=== PATIENT | female | born 1990 | race Hispanic/Latino ===

== ENCOUNTER 2022-04-29 17:41 | Emergency (ER) | payer SELFPAY ==
--- OUTSIDE RECORDS SUMMARY | 2022-04-29 17:44 | XMS REPORT | Continuity of Care Document ---
:1990 Author Organization [facility] t Address [address] [place] [address] Care Team Providers Name Role Phone Monica Butler Attending Clinician Renate Lee Admitting Clinician Unavailable Payers Payer Name Policy Type Policy Number Effective Date Expiration Date S ource Problems Condition Condition Condition Status Onset Resolution Last Treating Co mments Source Name Details Category Date Date Treatment Clinician Date No known No known Disease Unive rs active active ity of problems problems [facility] Allergies, Adverse Reactions, Alerts Allergy Allergy Status Severity Reaction(s) Onset Inactive Treating Comm ents Source Name Type Date Date Clinician No Known DA Active U [facility] No Known DA Active U 2017-0 [facility] Allergie 8-05 [facility] 00:[facility] NO KNOWN Drug Active Univers ALLERGIE Class [facility] Social History Social Habit Start Date Stop Date Quantity Comments Source Sex Assigned At Uni versity [facility] Exposure to SARS-CoV-2 Not sure Un iversity [facility] (event) [facility] Smoking Status Start Date Stop Date Source Never smoker [facility] Medications Ordered Filled Start Stop Current Ordering Indication Dosage Frequency Signature Comments Components Source Medication Medication Date Date Medication? Clinician (SIG) Name Name No known No [facility] medications [facility] Vital Signs Vital Name Observation Time Observation Value Comments Source Systolic blood 2019-11-30 08:30:14 116 mm[Hg] [facility]iver [facility] Diastolic blood 2019-11-30 08:30:14 80 mm[Hg] Unive rsity of pressure [facility] Heart rate 2019-11-30 08:30:14 80 /min Universi ty of [facility] Respiratory rate 2019-11-30 08:30:14 17 /min Univ ersity of [facility] Oxygen saturation in 2019-11-30 08:30:14 99 /min University of Arterial blood by [facility] Pulse oximetry Branch Body temperature 2019-11-30 06:48:00 36.39 Juju Univ ersity of [facility] Body height 2019-11-30 06:48:00 157.5 cm Universi ty of [facility] Body weight 2019-11-30 06:48:00 85.73 kg Universi ty of [facility] BMI 2019-11-30 06:48:00 34.57 kg/m2 Universi ty of [facility] Systolic blood 2019-11-30 08:30:14 116 mm[Hg] Univer sity [facility] Diastolic blood 2019-11-30 08:30:14 80 mm[Hg] Unive rsity of pressure [facility] Heart rate 2019-11-30 08:30:14 80 /min [facility] Respiratory rate 2019-11-30 08:30:14 17 /min Univ ersity of [facility] Oxygen saturation in 2019-11-30 08:30:14 99 /min University of Arterial blood by [facility] Pulse oximetry Branch Body temperature 2019-11-30 06:48:00 36.39 Juju Univ ersity of [facility] Body height 2019-11-30 06:48:00 157.5 cm [facility] Body weight 2019-11-30 06:48:00 85.73 kg Universi [facility] of [facility] BMI 2019-11-30 06:48:00 34.57 kg/m2 [facility] ty [facility] Procedures Procedure Date / Time Performed Performing Clinician Melinda fong [id number] 2020-09-03 00:00:00 M[facility] URINALYS[facility] 2019-11-30 07:09:00 Monica Schulz [facility] POCT TEST 2019-11-30 07:09:00 Monica [facility] Encounters Start End Encounter Admission Attending Care Care Encounter Source Date/Time Date/Time Type Type Clinicians Facility Department ID 2021-04-08 Emergency [facility] [id number] Univers 02:00:19 [facility] 2020-09-03 Inpatient [facility] [id number] [facility] 17:18:00 [id number] [facility] 2020-08-27 Inpatient [facility] FLAK[facility] [id number] [facility] 18:34:00 [id number] [facility] 2019-11-30 2019-11-[address] [facility] [id number] 01:51:03 03:31:00 Monica Fair [facility] [id number] [facility] 4.2.7.2.68[facility] [phone] [address] ([facility]) 2019-11-30 2019-11-[address] [facility] [id number] [facility] 01:51:03 03:31:00 Monica Fair [facility] [id number] i ty of League 4.2.7.2.686 [facility] [phone] [address] ([facility]) Results Test Description Test Time Test Comments Results Result Comments Source SURGICAL 2020-09-07 12:18:00 Test Item Value Reference Range Interpretation Commajit nts SURGICAL RUN DATE: (test 09/07/20 [facility] LAB LIVE PAGE 1 RUN TIME: 1218 Specimen Inquiry RUN USER: INTERFACE code = PATIENT: NOEL GAYLE ACCT #: [id number] LOC: [facility] U #: [id number] AGE/SX: 30/F ROOM: [facility] RE09/03/20REG DR: Renate Weber i : [birth year] BED: A DIS: 09/05/20 STATUS: DIS IN TLOC: SPEC #: [id number] RECD: 09/06/20908 STATUS: [facility] REQ #: [id number] MELANIA: 09/03/20- [facility] DR: Renate Lee MD ENTERE SP TYPE: SURGICAL OTHR DR: ORDERED: SURG/PATH GROSS GROSS DESCRIPTION: The speci men is received in formalin in a container labeled "NOEL TODD - BILATERAL TUBAL SEGMENTS, [facility] SIDE [facility]". The specimen consists of two fimbriated segments of fallopian tube. The right is marked with a stitch measuring 5 x 0.5 cm. It is inked in black. The left measures 3.5 x 0.6 cm. Sections from both are submitted in one cassette. CODES: [id number] - BOTH FALLOPIAN PROCEDURES: SURG/P ATH GROSS (09/06/20-909) TISSUES: A. BOTH FALLOPIAN TUBES - BILATERAL TUBAL SEGMENTS;RIGHT SIDE TA GGED Surgery information Surgery date 09/03/20 Surgeon(s): RENATE LEE Pre-Op Dx: IUP @ 36.3WKS; DESIRES STERILIZATION Post-Op Dx: SAME Signed SIGNATURE ON FILE Ant Holt 09/07/20 1218 END OF REPORT AG HEPATITIS B [id number] 09:42:00 Test Item Value Reference Range Interpretation Comments AG HEPATITIS B SURFACE NONREAC NONREAC The r esults were (test code = HBSAG) obtained using the Fluid Stoner XP HBsA g assay. AB [id number] 09:42:00 Test Item Value Reference Range Interpretation Comments AB TREPONEMA (test NONREACTIVE NONREACTIVE Treponema l screening code = TREPAB) for Syphilis------- ------ ----- HIV 1 2 COMBO AG/AB [id number] 09:42:00 Test Item Value Reference Range Interpretation Comments HIV 1 2 COMBO AG/AB NON REACT NON REACT A Non-re active result SCREEN (test code = does not exclude the [id number]) possibility shirley xposure to or infection wi th HIV. HIV antibodies and/or [id number] may be undetectable in some stages of the infectionand in some clinical condit ions.The results were ob tained using the inthinc XP CHIV assay.For use i n the detection of HI V p24 antigen and ant ibodiesto HIV Type 1 and/ or HIV Type 2. CBC W/AUTO [id number] 06:23:00 Test Item Value Reference Range Interpretation Comments WHITE BLOOD CELL (test code = 15.3 X10(3) 4.5-11.0 H WBC) RED BLOOD CELL (test code = 4.21 X10(6) 4.2-5.4 N RBC) HEMOGLOBIN (test code = HGB) 11.5 g/dL 12.5-16.0 L HEMATOCRIT (test code = HCT) 36.0 % 37.0-47.0 L MEAN CELL VOLUME (test code = 85.5 fl 78-100 N MCV) MEAN CELL HGB (test code = MCH) 27.3 pg 26.0-34.0 N MEAN CELL HGB CONCETRATION 31.9 g/dl 30.0-37.0 N (test code = MCHC) RED CELL DISTRIBUTION WIDTH 13.9 % 11.5-14.5 N (test code = RDW) PLATELET COUNT (test code = 290 X10(3) 150-350 N PLT) MEAN PLATELET VOLUME (test code 10.0 fl 8.7-11.4 N = MPV) NEUTROPHIL % (test code = NT%) 88.8 % 36.0-66.0 H IMMATURE GRANULOCYTE % (test 0.6 % 0.0-2.0 N code = IG%) LYMPHOCYTE % (test code = LY%) 7.6 % 16.0-50.0 L MONOCYTE % (test code = MO%) 2.9 % 0.0-13.0 N EOSINOPHIL % (test code = EO%) 0.0 % 0.0-4.5 N BASOPHIL % (test code = BA%) 0.1 % 0.0-1.5 N NUCLEATED RBC % (test code = 0.0 % 0-0.2 N NRBC%) NEUTROPHIL # (test code = NT#) 13.62 X10(3) 1.70-7.70 H IMMATURE GRANULOCYTE # (test 0.09 X10(3)uL 0.00-0.03 H code = IG#) LYMPHOCYTE # (test code = LY#) 1.17 X10(3) 0.70-4.00 N MONOCYTE # (test code = MO#) 0.44 X10(3) 0.00-0.89 N EOSINOPHIL # (test code = EO#) 0.00 X10(3) 0.00-0.60 N BASOPHIL # (test code = BA#) 0.02 X10(3) 0.00-0.20 N NUCLEATED RBC # (test code = 0.00 K/mm3 0.0-0.1 N NRBC#) UA RFLX MICROSCOPIC [id number] 21:36:00 Test Item Value Reference Range Interpretation Comments UA COLOR (test code = COLU) COLORLESS YELLOW UA APPEARANCE (test code = CLEAR CLEAR APPU) UA GLUCOSE DIPSTICK (test code NORMAL mg/dl NORMAL = DGLUU) UA BILIRUBIN DIPSTICK (test NEGATIVE mg/dl NEGATIVE code = BILU) UA KETONE DIPSTICK (test code TRACE mg/dl NEGATIVE = KETU) UA SPECIFIC GRAVITY (test code 1.007 1.001-1.035 N = SGU) UA BLOOD DIPSTICK (test code = NEGATIVE /UL NEGATIVE JUAN) UA PH DIPSTICK (test code = 7.0 4.6-8.0 MINERVA) UA PROTEIN DIPSTICK (test code NEGATIVE mg/dl NEGATIVE = PROU) UA UROBILINIOGEN DIPSTICK NORMAL mg/dl NORMAL (test code = URO) UA NITRITE DIPSTICK (test code NEGATIVE NEGATIVE = TALHA) UA LEUKOCYTE ESTERASE DIPSTICK NEGATIVE /UL NEGATIVE (test code = LEUU) UA COMMENT (test code = COMU) CATHERIZED UA WBC (test code = WBCUR) 0-2 #/hpf 0-5 UA RBC (test code = RBCU) 0-2 #/hpf 0-5 UA EPITHELIAL CELLS (test code FEW /hpf NEG,FEW = EPIU) Indication for culture: Temperature > 100.4 FURINE SOURCE: CATHERIZED URINE- US PREG AFTER [id number] 20:47:00 [facility] 1990 Sex: F FAX: Renate Capone [phone] [place]: [facility] St: ADM Name: NOEL TODD [facility] : 1990 Age/S: 30/F [address] [facility] Unit #: [id number] Loc: [facility] [place], [place] [address] Phys: Renate Lee MD Acct: [id number] Dis Date: Status: ADM IN PHONE #: [phone] Exam Date: 0 09/03/20202022 FAX #: [phone] Reason: WEL BEING, PAIN EXAMS: CPT CODE: [id number] US PREGAFTER 1ST TRI 46819 DICTATION LOCATION: 8 HISTORY: Female, 30 years of age with labor at 36 weeks 3 days by dates. Assess weight and well-being. EXAM: OB ULTRASOUND, LIMITED COMPARISON: None for this . TECHNIQUE: Real-time sonography was performed transabdominally with the 4 MHztransducer. FINDINGS: Number: Figueroa Presentation: cephalic Placenta: anterior, Grade2. There is no evidence of placental abruption or placenta previa. Cervix: Closed, measuring 3.05 cmlength. BRANDEE: 10.99, within normal limits. Single deepest pocket measures 3.58 cm. Anatomic Survey: No formal anatomic survey was done. heart rate: 174 BPM Average sonographic age of the fetus is 35 weeks 3 days with EDC of 10/05/2020 based on the following: Biparietal diameter: 35 weeks 0 days, 20.7 percentile Head circumference: 34 weeks 6 days, 3.2 percentile Abdominal circumference: 35 weeks 5 days, 39.6 percentile Femur length: 35 weeks 6 days, 32.2%. Estimated weight: 2710 grams +/- 406.57 grams, or 6 lbs. 0 oz. weight percentile: 29.8 % based on established due date of 09/28/2020 weeks gestational age by dates 36 weeks 3 days. IMPRESSION: 1. Single living intrauterine fetus at 35 weeks 3 days sonographic age. Ultrasound age consistent with dates. 2. No evidence for placenta previa or abruption. at 2046 Reported and signed by: ROLLY COUCH M.D. PAGE 1 Signed Report (CONTINUED) FAX: Renate Capone [phone] [place]: [facility] St: ADM -- Name: PEYTONNOEL WORKMAN [facility] : 1990 Age/S: 30/F [address] [place] [address] Unit #: [id number] Loc: [place] [address] Phys: Renate Lee MD Acct: [id number] Dis Date: Status: ADM IN PHONE #: [phone] Exam Date: 09/03/20202022 FAX #: [phone] Reason: WEL BEING, PAIN EXAMS: CPT CODE: [id number] US PREG AFTER TRI 37773 (Continued) CC: Renate Sierra Technologist: Zachary Jimenez RDMS Trnscrd Date/Time/By: 09/03/2020 (2046) : By: Victor Manuel Orig Print D/T: S: 09/03/2020 (2049) PAGE 2 Signed ReportCOVID 19 Asymptomatic IH [id number] 19:48:00 Test Item Value Reference Interpretation Comments Range COVID 19 Presumed NEGATIVE CATIA COVID-19 Asymptomatic IH AG Negative --------- ------Results (test code = are for the COVNONPUIAG) identification of WLMX-FtB-4yhpok ocapsid protein antigen . Antigen is generallydet ectable in upper respir atory specimens durin g the acutephase of i nfection. Positive result s indicate the pr esenceof viral antigens, but clinical correl ation with patienthis tory and other diagnosti c information is necessary todetermine inf ection status. Negativ e results should be treat ed as presumptive and confirmed with a molecula r assay, if necessary fo r patientmanageme nt. Negative result s do not rule out COVID- 19 andshould not b e used as the sole basis for treatment orpat ient management deci sions, including infec tion controldecision s. Negative result s should be considered i n thecontext of a patient's recen t exposures, hist ory and thepresence of clinical signs and sympt oms consistent with COVID-19. The Catia SARS Antigen DAPHNE is only for use under the Fooda nd Drug Administration' s Emergency Use Authorization. CBC W/AUTO [id number] 18:35:00 Test Item Value Reference Range Interpretation Comments WHITE BLOOD CELL (test code = 10.7 X10(3) 4.5-11.0 N WBC) RED BLOOD CELL (test code = 4.18 X10(6) 4.2-5.4 L RBC) HEMOGLOBIN (test code = HGB) 11.6 g/dL 12.5-16.0 L HEMATOCRIT (test code = HCT) 35.9 % 37.0-47.0 L MEAN CELL VOLUME (test code = 85.9 fl 78-100 N MCV) MEAN CELL HGB (test code = MCH) 27.8 pg 26.0-34.0 N MEAN CELL HGB CONCETRATION 32.3 g/dl 30.0-37.0 N (test code = MCHC) RED CELL DISTRIBUTION WIDTH 14.3 % 11.5-14.5 N (test code = RDW) PLATELET COUNT (test code = 286 X10(3) 150-350 N PLT) MEAN PLATELET VOLUME (test code 10.3 fl 8.7-11.4 N = MPV) NEUTROPHIL % (test code = NT%) 83.2 % 36.0-66.0 H IMMATURE GRANULOCYTE % (test 0.7 % 0.0-2.0 N code = IG%) LYMPHOCYTE % (test code = LY%) 10.1 % 16.0-50.0 L MONOCYTE % (test code = MO%) 5.5 % 0.0-13.0 N EOSINOPHIL % (test code = EO%) 0.3 % 0.0-4.5 N BASOPHIL % (test code = BA%) 0.2 % 0.0-1.5 N NUCLEATED RBC % (test code = 0.0 % 0-0.2 N NRBC%) NEUTROPHIL # (test code = NT#) 8.90 X10(3) 1.70-7.70 H IMMATURE GRANULOCYTE # (test 0.08 X10(3)uL 0.00-0.03 H code = IG#) LYMPHOCYTE # (test code = LY#) 1.08 X10(3) 0.70-4.00 N MONOCYTE # (test code = MO#) 0.59 X10(3) 0.00-0.89 N EOSINOPHIL # (test code = EO#) 0.03 X10(3) 0.00-0.60 N BASOPHIL # (test code = BA#) 0.02 X10(3) 0.00-0.20 N NUCLEATED RBC # (test code = 0.00 K/mm3 0.0-0.1 N NRBC#) COMPREHENSIVE METABOLIC [id number] 20:35:00 Test Item Value Reference Range Interpretation Comments SODIUM (test code = 141 mmol/L 136-145 N NA) POTASSIUM (test code = 3.4 mmol/L 3.5-5.1 L K) CHLORIDE (test code = 111 mmol/L 98-107 H CL) CARBON DIOXIDE (test 21 mmol/L 21-32 N code = CO2) GLUCOSE (test code = 80 mg/dL 70-100 N GLU) BLOOD UREA NITROGEN 5 mg/dL 7-18 L (test code = BUN) GLOMERULAR FILTRATION > 60.00 See_Comment Report ing units: RATE (test code = GFR) mL/mi n/1.73m\\S\\2 (Modified MDRD formula)REFEREN CE RANGE: > or = 6 0 ml/min/1.73M2IF PATIENT IS -ZAK N, MULTIPLY REPORT ED RESULT BY1.21. [Automated mess age] The system [employer] generated this result transmitted ref erence range: >=60. Th e reference range was not used to int erpret this result as normal/abnormal . CREATININE (test code 0.28 mg/dL 0.51-0.95 L = CREAT) TOTAL PROTEIN (test 6.1 g/dl 6.4-8.2 L code = PROT) ALBUMIN (test code = 2.5 g/dl 3.4-5.0 L ALB) CALCIUM (test code = 7.9 mg/dL 8.5-10.1 L CA) BILIRUBIN TOTAL (test 0.7 mg/dl 0.2-1.0 N code = BILT) SGOT/AST (test code = 9 U/L 15-37 L AST) SGPT/ALT (test code = 14 U/L 12-78 N ALT) ALKALINE PHOSPHATASE 103 U/L 50-136 N TOTAL (test code = ALKP) COMPREHENSIVE METABOLIC [id number] 20:33:00 Test Item Value Reference Range Interpretation Comments SODIUM (test code = 141 mmol/L 136-145 N NA) POTASSIUM (test code = 3.4 mmol/L 3.5-5.1 L K) CHLORIDE (test code = 111 mmol/L 98-107 H CL) CARBON DIOXIDE (test 21 mmol/L 21-32 N code = CO2) GLUCOSE (test code = 80 mg/dL 70-100 N GLU) BLOOD UREA NITROGEN 5 mg/dL 7-18 L (test code = BUN) GLOMERULAR FILTRATION > 60.00 See_Comment Report ing units: RATE (test code = GFR) mL/mi n/1.73m\\S\\2 (Modified MDRD formula)REFEREN CE RANGE: > or = 6 0 ml/min/1.73M2IF PATIENT IS -ZAK N, MULTIPLY REPORT ED RESULT BY07.01. [Automated mess age] The system [employer] generated this result transmitted ref erence range: >=60. Th e reference range was not used to int erpret this result as normal/abnormal . CREATININE (test code 0.28 mg/dL 0.51-0.95 L = CREAT) TOTAL PROTEIN (test g/dl 6.4-8.2 code = PROT) ALBUMIN (test code = 2.5 g/dl 3.4-5.0 L ALB) CALCIUM (test code = 7.9 mg/dL 8.5-10.1 L CA) BILIRUBIN TOTAL (test mg/dl 0.2-1.0 code = BILT) SGOT/AST (test code = 9 U/L 15-37 L AST) SGPT/ALT (test code = 14 U/L 12-78 N ALT) ALKALINE PHOSPHATASE U/L 50-136 TOTAL (test code = ALKP) COMPREHENSIVE METABOLIC [id number] 20:30:00 Test Item Value Reference Range Interpretation Comments SODIUM (test code = 141 mmol/L 136-145 N NA) POTASSIUM (test code = 3.4 mmol/L 3.5-5.1 L K) CHLORIDE (test code = 111 mmol/L 98-107 H CL) CARBON DIOXIDE (test 21 mmol/L 21-32 N code = CO2) GLUCOSE (test code = 80 mg/dL 70-100 N GLU) BLOOD UREA NITROGEN 5 mg/dL 7-18 L (test code = BUN) GLOMERULAR FILTRATION See_Comment [Auto mated message] RATE (test code = GFR) The s ystem which generated this result transmitted ref erence range: >=60. Th e reference range was not used to int erpret this result as normal/abnormal . CREATININE (test code mg/dL 0.51-0.95 = CREAT) TOTAL PROTEIN (test g/dl 6.4-8.2 code = PROT) ALBUMIN (test code = 2.5 g/dl 3.4-5.0 L ALB) CALCIUM (test code = 7.9 mg/dL 8.5-10.1 L CA) BILIRUBIN TOTAL (test mg/dl 0.2-1.0 code = BILT) SGOT/AST (test code = U/L 15-37 AST) SGPT/ALT (test code = U/L 12-78 ALT) ALKALINE PHOSPHATASE U/L 50-136 TOTAL (test code = ALKP) COMPREHENSIVE METABOLIC [id number] 20:29:00 Test Item Value Reference Range Interpretation Comments SODIUM (test code = 141 mmol/L 136-145 N NA) POTASSIUM (test code = 3.4 mmol/L 3.5-5.1 L K) CHLORIDE (test code = 111 mmol/L 98-107 H CL) CARBON DIOXIDE (test mmol/L 21-32 code = CO2) GLUCOSE (test code = mg/dL 70-100 GLU) BLOOD UREA NITROGEN mg/dL 7-18 (test code = BUN) GLOMERULAR FILTRATION See_Comment [Auto mated message] RATE (test code = GFR) The s ystem which generated this result transmitted ref erence range: >=60. Th e reference range was not used to int erpret this result as normal/abnormal . CREATININE (test code mg/dL 0.51-0.95 = CREAT) TOTAL PROTEIN (test g/dl 6.4-8.2 code = PROT) ALBUMIN (test code = g/dl 3.4-5.0 ALB) CALCIUM (test code = 7.9 mg/dL 8.5-10.1 L CA) BILIRUBIN TOTAL (test mg/dl 0.2-1.0 code = BILT) SGOT/AST (test code = U/L 15-37 AST) SGPT/ALT (test code = U/L 12-78 ALT) ALKALINE PHOSPHATASE U/L 50-136 TOTAL (test code = ALKP) COMPREHENSIVE METABOLIC [id number] 20:27:00 Test Item Value Reference Range Interpretation Comments SODIUM (test code = 141 mmol/L 136-145 N NA) POTASSIUM (test code = 3.4 mmol/L 3.5-5.1 L K) CHLORIDE (test code = 111 mmol/L 98-107 H CL) CARBON DIOXIDE (test mmol/L 21-32 code = CO2) GLUCOSE (test code = mg/dL 70-100 GLU) BLOOD UREA NITROGEN mg/dL 7-18 (test code = BUN) GLOMERULAR FILTRATION See_Comment [Auto mated message] RATE (test code = GFR) The s ystem which generated this result transmitted ref erence range: >=60. Th e reference range was not used to int erpret this result as normal/abnormal . CREATININE (test code mg/dL 0.51-0.95 = CREAT) TOTAL PROTEIN (test g/dl 6.4-8.2 code = PROT) ALBUMIN (test code = g/dl 3.4-5.0 ALB) CALCIUM (test code = mg/dL 8.5-10.1 CA) BILIRUBIN TOTAL (test mg/dl 0.2-1.0 code = BILT) SGOT/AST (test code = U/L 15-37 AST) SGPT/ALT (test code = U/L 12-78 ALT) ALKALINE PHOSPHATASE U/L 50-136 TOTAL (test code = ALKP) URINALYSIS W REFLEX [id number] 20:24:00 Test Item Value Reference Range Interpretation Comments UA COLOR (test code = COLU) COLORLESS YELLOW UA APPEARANCE (test code = CLEAR CLEAR APPU) UA GLUCOSE DIPSTICK (test code NORMAL mg/dl NORMAL = DGLUU) UA BILIRUBIN DIPSTICK (test NEGATIVE mg/dl NEGATIVE code = BILU) UA KETONE DIPSTICK (test code NEGATIVE mg/dl NEGATIVE = KETU) UA SPECIFIC GRAVITY (test code 1.005 1.001-1.035 N = SGU) UA BLOOD DIPSTICK (test code = NEGATIVE /UL NEGATIVE JUAN) UA PH DIPSTICK (test code = 6.5 4.6-8.0 MINERVA) UA PROTEIN DIPSTICK (test code NEGATIVE mg/dl NEGATIVE = PROU) UA UROBILINIOGEN DIPSTICK NORMAL mg/dl NORMAL (test code = URO) UA NITRITE DIPSTICK (test code NEGATIVE NEGATIVE = TALHA) UA LEUKOCYTE ESTERASE DIPSTICK NEGATIVE /UL NEGATIVE (test code = LEUU) UA COMMENT (test code = COMU) RANDOM UA WBC (test code = WBCU) 0-2 #/hpf 0-5 UA RBC (test code = RBCU) 0-2 #/hpf 0-5 UA EPITHELIAL CELLS (test code FEW /hpf NEG,FEW = EPIU) UA BACTERIA (test code = BACU) 1+ /hpf NEGATIVE A URINE SOURCE: RANDOM URINECBC W/AUTO [id number] 20:18:00 Test Item Value Reference Range Interpretation Comments WHITE BLOOD CELL (test code = 10.9 X10(3) 4.5-11.0 N WBC) RED BLOOD CELL (test code = 3.72 X10(6) 4.2-5.4 L RBC) HEMOGLOBIN (test code = HGB) 10.4 g/dL 12.5-16.0 L HEMATOCRIT (test code = HCT) 32.0 % 37.0-47.0 L MEAN CELL VOLUME (test code = 86.0 fl 78-100 N MCV) MEAN CELL HGB (test code = MCH) 28.0 pg 26.0-34.0 N MEAN CELL HGB CONCETRATION 32.5 g/dl 30.0-37.0 N (test code = MCHC) RED CELL DISTRIBUTION WIDTH 13.8 % 11.5-14.5 N (test code = RDW) PLATELET COUNT (test code = 260 X10(3) 150-350 N PLT) MEAN PLATELET VOLUME (test code 10.0 fl 8.7-11.4 N = MPV) NEUTROPHIL % (test code = NT%) 66.0 % 36.0-66.0 N IMMATURE GRANULOCYTE % (test 0.9 % 0.0-2.0 N code = IG%) LYMPHOCYTE % (test code = LY%) 24.6 % 16.0-50.0 N MONOCYTE % (test code = MO%) 6.8 % 0.0-13.0 N EOSINOPHIL % (test code = EO%) 1.4 % 0.0-4.5 N BASOPHIL % (test code = BA%) 0.3 % 0.0-1.5 N NUCLEATED RBC % (test code = 0.0 % 0-0.2 N NRBC%) NEUTROPHIL # (test code = NT#) 7.18 X10(3) 1.70-7.70 N IMMATURE GRANULOCYTE # (test 0.10 X10(3)uL 0.00-0.03 H code = IG#) LYMPHOCYTE # (test code = LY#) 2.67 X10(3) 0.70-4.00 N MONOCYTE # (test code = MO#) 0.74 X10(3) 0.00-0.89 N EOSINOPHIL # (test code = EO#) 0.15 X10(3) 0.00-0.60 N BASOPHIL # (test code = BA#) 0.03 X10(3) 0.00-0.20 N NUCLEATED RBC # (test code = 0.00 K/mm3 0.0-0.1 N NRBC#) [id number] 07:35:00 Test Item Value Reference Range Interpretation Comments APPEARANCE (test code = Clear Clear [id number]) COLOR (test code = Straw Yellow A [id number]) PH (test code = 4.8-8.0 4552640662) SP GRAVITY (test code = 1.003-1.030 [id number]) GLU U QUAL (test code = Normal Normal [id number]) BLOOD (test code = Negative Negative 4161289266) KETONES (test code = Negative Negative 4671787933) PROTEIN (test code = Negative Negative 2887-8) UROBILIN (test code = Normal Normal 5618316558) BILIRUBIN (test code = Negative Negative 7464751450) NITRITE (test code = Negative Negative 7926609684) LEUK JACQUELINE (test code = Negative Negative 6481523897) RBC/HPF (test code = See_Comment [Autom ated message] [id number]) The system [employer] generated this result transmitted ref erence range: 0 - 3 HP F. The reference range was not used to int erpret this result as normal/abnormal . WBC/HPF (test code = <1 See_Comment [Autom ated message] [id number]) The system [employer] generated this result transmitted ref erence range: 0 - 5 HP F. The reference range was not used to int erpret this result as normal/abnormal . BACTERIA (test code = Few Negative A [id number]) SQ EPITH (test code = <1 See_Comment [Auto mated message] [id number]) The system [employer] generated this result transmitted ref erence range: <=2 HPF. The reference range was not used to int erpret this result as normal/abnormal . Lab Interpretation (test Abnormal code = 47518-0) [id number] 07:09:00 Test Item Value Reference Range Interpretation Comments POCT PREG (test code = 1605) negative On board controls acceptable with present C Line (test code = 3574) POCT PREG LOT # (test code = 3575) [id number] POCT PREG TEST DATE (test 01/08/2021 code = 3576) Lab Interpretation (test code = Normal 44848-4) [facility]
[2022-04-29 18:44] LABS: Absolute Lymphocytes (CBC) 2.6 K/uL (0.7-4.9); Hematocrit 41.3 % (36.0-45.0); Lymphocytes % 29.1 % (15.3-44.8); MCV 86.7 fL (80-100); MPV 8.1 fL (7.6-11.3); RBC Red Blood Cell Count 4.77 M/uL (3.86-4.86)
[2022-04-29 18:56] LABS: Albumin 3.6 g/dL (3.4-5.0); Magnesium 1.7 mg/dL (1.8-2.4); Potassium 3.6 mmol/L (3.5-5.1)
[2022-04-29 19:06] LABS: Bilirubin Direct 0.2 mg/dL (0-0.2); Bilirubin Total 0.9 mg/dL (0.2-1.0); Protein, Total 7.2 g/dL (6.4-8.2)
--- NOTE | 2022-04-29 19:11 | RAD REPORT ---
EXAM DESCRIPTION: Mikey Single View04/29/2022 6:56 pm CLINICAL HISTORY: Chest pain COMPARISON: none FINDINGS: The lungs appear clear of acute infiltrate. The heart is normal size IMPRESSION: No acute abnormalities displayed
[2022-04-29 19:13] LABS: Troponin High Sensitivity 3.5 pg/mL (<58.9)
[2022-04-29 19:21] LABS: Urine Blood Negative (Negative); Urine Glucose Negative (Negative); Urine Protein Negative (Negative)
[2022-04-29] MEDS ORDERED: KETOROLAC 30 MG/ML INJ ONE (19:30)
[2022-04-29] MEDS ORDERED: MAGNESIUM SULFATE 1 gm IVPB 1 GM/100 ML BAG IV ONE (19:31)
--- NOTE | 2022-04-29 20:28 | EDPHYS ---
Physician Documentation [facility] Name: Kennedi Demarco Age: 31 yrs Sex: Female : 1990 Arrival Date: 04/29/2022 Time: 17:43 Bed 15 Private MD: ED Physician Scott Lal HPI: 04/29 18:04 This 31 yrs old Female presents to ER via Ambulatory with complaints of Chest cp Pain. 18:05 The patient or guardian reports chest pain that is located primarily in the anterior cp chest wall, right. The pain radiates to right back. 18:05 Associated signs and symptoms: Pertinent positives: shortness of breath, Pertinent cp negatives: abdominal pain, cough, dizziness, lower extremity pain, lower extremity swelling, recent travel, syncope, vomiting. The chest pain is described as sharp. Duration: The patient or guardian reports multiple episodes, that are intermittent. Historical: - Allergies: 17:53 No Known Allergies; hb - Immunization history:: Adult Immunizations unknown. - Social history:: Smoking status: Patient denies any tobacco usage or history of. ROS: 18:10 Cardiovascular: Positive for chest pain, of the right side upper chest, Negative for cp edema, palpitations. 18:10 Back: Positive for radiated pain, of the right scapular area and right subscapular area.cp 18:10 Abdomen/GI: Negative for abdominal pain, nausea, vomiting, and diarrhea, constipation. cp 18:10 Eyes: Negative for injury, pain, redness, and discharge. cp 18:10 Constitutional: Negative for body aches, chills, fever, poor PO intake. 18:10 ENT: Negative for drainage from ear(s), ear pain, sore throat, difficulty swallowing, difficulty handling secretions. 18:10 Respiratory: Positive for shortness of breath, Negative for cough, wheezing. 18:10 Neuro: Negative for altered mental status, headache, syncope, weakness. 18:10 All other systems are negative. Exam: 18:15 Constitutional: The patient appears in no acute distress, alert, awake, cp non-diaphoretic, non-toxic, well developed, well nourished. 18:15 Head/Face: Normocephalic, atraumatic. cp 18:15 Eyes: Periorbital structures: appear normal, Conjunctiva: normal, no exudate, no injection, Sclera: no appreciated abnormality, Lids and lashes: appear normal, bilaterally. 18:15 ENT: External ear(s): are unremarkable, Nose: is normal, Mouth: Lips: moist, Oral mucosa: moist, Posterior pharynx: Airway: no evidence of obstruction, patent. 18:15 Neck: ROM/movement: is normal, is supple, without pain, no range of motions limitations. 18:15 Chest/axilla: Inspection: normal. 18:15 Cardiovascular: Rate: normal, Rhythm: regular, Edema: is not appreciated, JVD: is not appreciated. 18:15 Respiratory: the patient does not display signs of respiratory distress, Respirations: normal, no use of accessory muscles, no retractions, labored breathing, is not present, Breath sounds: are clear throughout, no decreased breath sounds, no stridor, no wheezing. 18:15 Abdomen/GI: Inspection: abdomen appears normal, Palpation: abdomen is soft and non-tender, in all quadrants. 18:15 Back: pain, that is mild, of the right scapular area and right subscapular area, ROM is normal. 18:15 Skin: no rash present. 18:15 Neuro: Orientation: to person, place \T\ time. Mentation: is normal, Cerebellar function: is grossly normal, Motor: moves all fours, strength is normal, Sensation: is normal. 18:30 ECG was reviewed by the Attending Physician. cp Vital Signs: 17:52 BP 121 / 80; Pulse 77; Resp 16; Temp 98; Pulse Ox 97% on R/A; Weight 84.37 kg; Height 5 hb ft. 2 in. (157.48 cm); Pain 7/10; 18:56 BP 97 / 76; Pulse 71; Resp 16; Pulse Ox 100% on R/A; ko1 19:43 BP 100 / 69; Pulse 63; Resp 19; Pulse Ox 100% on R/A; ke1 20:46 BP 99 / 64; Pulse 91; Resp 16 S; Pulse Ox 100% on R/A; bb 17:52 Body Mass Index 34.02 (84.37 kg, 157.48 cm) hb MDM: 18:01 Patient medically screened. cp 19:00 Differential diagnosis: abnormal EKG, acute myocardial infarction, acute pericarditis, cp chest wall pain, cholecystitis, Cholelithiasis pancreatitis, pericarditis, pleurisy, pneumonia, pneumothorax, pulmonary embolus. 20:27 Data reviewed: vital signs, nurses notes, lab test result(s), EKG, radiologic studies, cp plain films. Test interpretation: by ED physician or midlevel provider: ECG, plain radiologic studies. Response to treatment: the patient's symptoms have markedly improved after treatment, Pain improved. Patient sleeping in exam room, and as a result, I will discharge patient. 04/29 18:09 Order name: Basic Metabolic Panel; Complete Time: 19:23 04/29 19:24 Interpretation: Reviewed. 04/29 18:09 Order name: CBC with Diff; Complete Time: 19:23 04/29 18:09 Order name: D-Dimer; Complete Time: 19:23 04/29 19:24 Interpretation: Reviewed. 04/29 18:09 Order name: LFT's; Complete Time: 19:23 04/29 19:23 Interpretation: Normal except: GLOB 3.6; A/G 1.0. 04/29 18:09 Order name: Magnesium; Complete Time: 19:23 04/29 19:23 Interpretation: Abnormal: MG 1.7. 04/29 18:09 Order name: Troponin HS; Complete Time: 19:23 04/29 18:09 Order name: XRAY Chest (1 view); Complete Time: 19:23 04/29 19:24 Interpretation: Report review. 04/29 18:09 Order name: EKG; Complete Time: 18:10 04/29 18:09 Order name: Cardiac monitoring; Complete Time: 18:15 04/29 18:09 Order name: EKG - Nurse/Tech; Complete Time: 18:35 04/29 19:21 Order name: Urine Dipstick-Ancillary; Complete Time: 19:23 EDMS 04/29 20:03 Order name: Urine --Ancillary (enter results); Complete Time: 20:19 wm 04/29 18:09 Order name: IV Saline Lock; Complete Time: 18:35 04/29 18:09 Order name: Labs collected and sent; Complete Time: 18:35 04/29 18:09 Order name: O2 Per Protocol; Complete Time: 18:15 04/29 18:09 Order name: O2 Sat Monitoring; Complete Time: 18:15 cp 04/29 18:09 Order name: Urine Dipstick-Ancillary (obtain specimen); Complete Time: 19:27 cp 04/29 18:09 Order name: Urine Test (obtain specimen); Complete Time: 19:27 cp EC:30 Rate is 79 beats/min. Rhythm is regular. ND interval is normal. QRS interval is normal. cp QT interval is normal. T waves are Inverted in lead aVR. Interpreted by me. Reviewed by me. Administered Medications: 19:43 Drug: Magnesium Sulfate 1 grams Route: IVPB; Infused Over: 1 hrs; Site: right [facility] antecubital; 20:45 Follow up: IV Status: Completed infusion; IV Intake: 100ml bb 19:49 Drug: Ketorolac 15 mg Route: IVP; Site: right antecubital; [facility] 20:45 Follow up: Response: No adverse reaction bb Disposition Summary: 04/29/22 20:28 Discharge Ordered Location: Home cp Problem: new cp Symptoms: have improved cp Condition: Stable cp Diagnosis - Chest pain, unspecified cp Followup: cp - With: Private Physician - When: 2 - 3 days - Reason: Recheck today's complaints Discharge Instructions: - Discharge Summary Sheet cp - Nonspecific Chest Pain, Adult cp Forms: - Medication Reconciliation Form cp - Thank You Letter cp - Work release form bb - Antibiotic Education cp - Prescription Opioid Use cp Prescriptions: - Diclofenac Sodium 75 mg Oral Tablet Sustained Release - take 1 tablet by ORAL route 2 times per day; 30 tablet; Refills: 0, Product cp Selection Permitted Addendum: 05/01/2022 17:38 Co-signature as Attending Physician, Scott Lal MD I agree with the assessment and r t plan of care. Signatures: Dispatcher [employer] EDMS James Tariq PA PA cp Bridget Ferrari RN MARIKA Mariah Pruett RN RN ke1 Dolores Dewey RN RN ko1 Scott Lal MD MD rt Tala Anglin RN bb Corrections: (The following items were deleted from the chart) 04/30 16:57 04/29 18:05 Duration: The patient or guardian reports a single episode, that is still cp ongoing, and unchanged, cp
--- NOTE | 2022-04-29 20:28 | ER ---
Nurse's Notes [facility] Name: Kennedi Demarco Age: 31 yrs Sex: Female : 1990 Arrival Date: 04/29/2022 Time: 17:43 Bed 15 Private MD: Diagnosis: Chest pain, unspecified Presentation: 04/29 17:52 Chief complaint: Intermittent sharp right sided chest pain that radiates to back x 4 hb days. Coronavirus screen: At this time, the client does not indicate any symptoms associated with coronavirus-19. Ebola Screen: No symptoms or risks identified at this time. Initial Sepsis Screen: Does the patient meet any 2 criteria? No. Patient's initial sepsis screen is negative. Does the patient have a suspected source of infection? No. Patient's initial sepsis screen is negative. Risk Assessment: Do you want to hurt yourself or someone else? Patient reports no desire to harm self or others. Onset of symptoms was April 26, 2022. 17:52 Method Of Arrival: Ambulatory hb 17:52 Acuity: SERENA 3 hb Historical: - Allergies: 17:53 No Known Allergies; hb - Immunization history:: Adult Immunizations unknown. - Social history:: Smoking status: Patient denies any tobacco usage or history of. Screenin:20 Abuse screen: Denies threats or abuse. Denies injuries from another. Nutritional ko1 screening: No deficits noted. Tuberculosis screening: No symptoms or risk factors identified. Fall Risk None identified. Assessment: 18:20 Also complains of no other symptoms. General: Appears in no apparent distress. ko1 comfortable. General: Behavior is calm, cooperative, appropriate for age. Pain: Complains of pain in anterior aspect of right upper chest and right subscapular area and right scapular area Pain does not radiate. Pain began 3-4 days ago. Neuro: No deficits noted. Cardiovascular: Reports chest pain. Respiratory: No deficits noted. GI: No deficits noted. : No deficits noted. EENT: No deficits noted. Derm: No deficits noted. Musculoskeletal: No deficits noted. 19:44 Reassessment: Patient appears in no apparent distress at this time. Patient is alert, ke1 oriented x 3, equal unlabored respirations, skin warm/dry/pink. 19:49 Pain: Complains of pain in anterior aspect of right upper chest Pain currently is 7 out ke1 of 10 on a pain scale. 20:45 Reassessment: Patient is alert, oriented x 3, equal unlabored respirations, skin bb warm/dry/pink. pt verbalized understanding of and agrees to plan of care discharge instructions given pt ambulated with steady gait to exit. Vital Signs: 17:52 BP 121 / 80; Pulse 77; Resp 16; Temp 98; Pulse Ox 97% on R/A; Weight 84.37 kg; Height 5 hb ft. 2 in. (157.48 cm); Pain 7/10; 18:56 BP 97 / 76; Pulse 71; Resp 16; Pulse Ox 100% on R/A; ko1 19:43 BP 100 / 69; Pulse 63; Resp 19; Pulse Ox 100% on R/A; ke1 20:46 BP 99 / 64; Pulse 91; Resp 16 S; Pulse Ox 100% on R/A; bb 17:52 Body Mass Index 34.02 (84.37 kg, 157.48 cm) hb ED Course: 17:43 Patient arrived in ED. rg4 17:46 James Tariq PA is PHCP. cp 17:46 Scott Lal MD is Attending Physician. cp 17:53 Triage completed. hb 17:56 Dolores Dewey, RN is Primary Nurse. ko1 18:20 No provider procedures requiring assistance completed. Inserted saline lock: 20 gauge ko1 in right antecubital area, using aseptic technique. Blood collected. Patient maintains SpO2 saturation greater than 95% on room air. 18:20 Patient has correct armband on for positive identification. Placed in gown. Bed in low ko1 position. Call light in reach. Side rails up X 1. Client placed on continuous cardiac and pulse oximetry monitoring. NIBP monitoring applied. monitor technician on. 18:35 Basic Metabolic Panel Sent. ko1 18:35 CBC with Diff Sent. ko1 18:35 D-Dimer Sent. ko1 18:35 LFT's Sent. ko1 18:35 Magnesium Sent. ko1 18:35 Troponin HS Sent. ko1 18:58 XRAY Chest (1 view) In Process Unspecified. EDMS 19:46 Primary Nurse role handed off by Dolores Dewey, RN 19:49 Mariah Pruett, MARIKA is Primary Nurse. ke1 20:05 Urine --Ancillary (enter results) Sent. mm9 20:46 IV discontinued, intact, bleeding controlled, No redness/swelling at site. Pressure bb dressing applied. Administered Medications: 19:43 Drug: Magnesium Sulfate 1 grams Route: IVPB; Infused Over: 1 hrs; Site: right ke1 antecubital; 20:45 Follow up: IV Status: Completed infusion; IV Intake: 100ml bb 19:49 Drug: Ketorolac 15 mg Route: IVP; Site: right antecubital; ke1 20:45 Follow up: Response: No adverse reaction bb Medication: 18:20 VIS not applicable for this client. ko1 Intake: 20:45 IV: 100ml; Total: 100ml. bb Outcome: 20:28 Discharge ordered by MD. sandhya 20:46 Discharged to home bb 20:46 Condition: stable 20:46 Discharge instructions given to patient, Instructed on discharge instructions, follow up and referral plans. medication usage, Demonstrated understanding of instructions, follow-up care, medications, Prescriptions given X 1. 20:47 Patient left the ED. bb Signatures: Dispatcher [employer] EDMS Tala Anglin RN RN James Deleon, PA PA Bridget Ugarte, RN Kerline Dominguez rg4 Alexa Villalba Kouassi, RN RN ke1 Oliver, Kathy, RN RN Georgia Riggins mm9
[2022-04-29 20:51] VITALS: TEMP 98
[2022-04-29 20:52] VITALS: O2SAT 100
[2022-04-29 20:54] VITALS: BP 99/64
--- NOTE | 2022-05-01 15:33 | EKG ---
Test Date: 2022-04-29 Test Time: 18:25:36 Storm Sash Maker: GUILLERMO MEASUREMENT RESULTS: Intervals: Rate: 79 [place]: 138 QRSD: 76 QT: 380 QTc: 435 [place]: P: 30 NJ: 138 QRS: 28 T: 42 INTERPRETIVE STATEMENTS: Normal sinus rhythm Cannot rule out Anterior infarct, age undetermined Abnormal ECG No previous ECG available for comparison Electronically Signed On 05-01-22 15:30:03 SHEETMETAL PATTERNMAKER by Agustin Saini
== END 2022-04-29 20:47 | disposition home or self-care (01) ==
LOC: ER 17:41
DX: R07.89 Other chest pain (principal)
CPT/HCPCS: 36415; 71045; 80048; 80076; 81003; 81025; 83735; 84484; 85025; 85379; 93005; 96365; 96375; 99285; J3475